=== PATIENT | male | born 1985 | race African-American/Black ===

== ENCOUNTER 2020-12-08 03:04 | Emergency (ER) | payer OTHER ==
[~2020-12-08] VITALS: Ht 177.8 cm; Wt 90.7 kg
[2020-12-08 03:15] VITALS: BP 121/76
[2020-12-08] MEDS ORDERED: SULF1TAB48 PO (04:16)
[2020-12-08] MEDS ORDERED: CEPH500C2 PO (04:16)
[2020-12-08] MEDS ORDERED: TRIA80OI TP (04:19)
[2020-12-08] MEDS ORDERED: CEPHALEXIN MONOHYDRATE 500 MG CAPSULE PO ONE ×2 (04:29→04:30)
[2020-12-08] MEDS ORDERED: SULFAMETH/TRIMETH 800/160 MG 1 UDTAB TABLET ONE (04:29)
[2020-12-08] MEDS ORDERED: SULFAMETH/TRIMETH 800/160 MG 1 UDTAB TABLET PO ONE (04:30)
--- NOTE | 2020-12-08 04:32 | NUR ---
Patient discharged to home in stable condition. Rx and Written and verbal after care instructions given. Patient verbalizes understanding of instruction.
== END 2020-12-08 04:45 | disposition home or self-care (01) ==
LOC: ER 03:14
DX: L03.311 Cellulitis of abdominal wall (principal); Z98.890 Other specified postprocedural states; Z60.2 Problems related to living alone; Z79.899 Other long term (current) drug therapy